=== PATIENT | male | born 1950 | race Caucasian/White ===

== ENCOUNTER 2020-01-20 10:43 | Observation (INO) | payer OTHER ==
[~2020-01-20] VITALS: Ht 182.9 cm; Wt 128.4 kg
[~2020-01-20 10:43] MED LIST: AMBIEN10 MG PO; AMBIENPAK10 M1; ASPIRIN ADULT L81 M4 PO; ASPIRIN ADULT L81 M5; ASPIRIN EC81 M1 PO; ATIVAN1 MG PO; ATIVAN2 MG PO; BACLOFEN10 MG PO; BACO TOP; CELEXA20 MG PO; CEPHALEXIN500 M1 PO; CIPRO500 MG PO; COLACE100 MG; COLACE100 MG PO; DOC-Q-LACE PO; ESCITALOPRAM10 M1 PO; FUROSEMIDE40 MG PO; GLU500 PO; HCTZ/LISINOPRIL1 TA1; HIBICLENS118 ML TOP; HYDROCHLOROTHIA25 MG PO; IBU800 M2; K10 PO; KEN10 TOP; LACTULOSE10 GM/152 PO; LASIX40 MG PO; LEXAPRO10 MG PO; LIO10; LORAZEPAM2 MG PO; LOT1C TOP; OXYCODONE AND A1 TA1 PO; PERCOCET1 TA2 PO; PRINIVIL20 MG PO; RES7; THERAGRAN-M1 TA4 PO; TRAZODONE150 M1 PO; TRE400 PO; WELLBUTRIN SR150 M1; ZES10 PO; ZESTRIL10 MG PO; ZIN PO; ZOC20 PO; ZOCOR20 MG PO
[2020-01-20 10:55] VITALS: Ht 182.9 cm; Wt 128.4 kg
[2020-01-20 12:59] LABS: BILIRUBIN TOTAL 0.25 mg/dL (0.20-1.00); CARBON DIOXIDE 17.8 mmol/L (21-32); CREATININE SERUM 2.2 mg/dL (0.7-1.3); TOTAL PROTEIN, SERUM 7.4 g/dL (6.4-8.2)
[2020-01-20 13:05] LABS: ALBUMIN 3.3 g/dL (3.4-5.0)
[2020-01-20 13:29] LABS: microscopic required? YES; urine erythrocyte TRACE (NEGATIVE)
[2020-01-20 13:48] LABS: BASOPHIL % 0.5 % (0-2); PLATELET COUNT 263 x10^3mcL (130-400); RED CELL DISTRIBUTION WIDTH 14.1 % (11.5-14.5)
[2020-01-20] MEDS ORDERED: RES7 PO (17:12)
[2020-01-20] MEDS ORDERED: LISINOPRIL-HYDR1 TA3 PO (17:13)
[2020-01-20] MEDS ORDERED: NORCO 10-325 T1 EACH PO (17:14)
[2020-01-20] MEDS ORDERED: FOSAMAX PLUS D1 TA1 PO (17:14)
[2020-01-20] MEDS ORDERED: ATIVAN0.5 M1 PO (17:16)
[2020-01-20] MEDS ORDERED: WELLBUTRIN XL150 M1 PO (17:16)
[2020-01-20] MEDS ORDERED: SIMVASTATIN5 M2 PO (17:17)
[2020-01-20 18:31] VITALS: BP 116/59
[2020-01-20 20:47] VITALS: BP 121/53
[2020-01-21 05:29] VITALS: BP 128/59
[2020-01-21 07:58] VITALS: BP 106/44
[2020-01-21 11:52] VITALS: BP 98/51
[2020-01-21 14:05] LABS: POTASSIUM SERUM 5.8 mmol/L (3.5-5.1)
[2020-01-21 14:50] LABS: CALCIUM 8.6 mg/dL (8.5-10.1); CARBON DIOXIDE 23.6 mmol/L (21-32); CREATININE SERUM 1.8 mg/dL (0.7-1.3)
[2020-01-21 15:07] LABS: POTASSIUM SERUM 5.8 mmol/L (3.5-5.1)
[2020-01-21 16:26] VITALS: BP 117/87
[2020-01-21 20:09] VITALS: BP 111/64
[2020-01-22 05:25] VITALS: BP 113/53
[2020-01-22 07:31] LABS: BASOPHIL % 0.7 % (0-2); PLATELET COUNT 266 x10^3mcL (130-400)
[2020-01-22 07:45] LABS: CALCIUM 8.4 mg/dL (8.5-10.1); CARBON DIOXIDE 20.2 mmol/L (21-32); CREATININE SERUM 1.5 mg/dL (0.7-1.3)
[2020-01-22 07:52] VITALS: BP 137/64
[2020-01-22 10:20] LABS: RED CELL DISTRIBUTION WIDTH 14.7 % (11.5-14.5)
[2020-01-22 11:33] VITALS: BP 133/61
[2020-01-22 15:38] VITALS: BP 114/59
[2020-01-22 20:54] VITALS: BP 125/64
[2020-01-23 05:30] VITALS: BP 127/68
[2020-01-23 08:06] VITALS: BP 83/51
[2020-01-23 09:00] VITALS: BP 109/64
[2020-01-23 10:13] LABS: CALCIUM 8.3 mg/dL (8.5-10.1); CARBON DIOXIDE 24.8 mmol/L (21-32); CREATININE SERUM 1.5 mg/dL (0.7-1.3); POTASSIUM SERUM 4.9 mmol/L (3.5-5.1)
[2020-01-23 11:37] VITALS: BP 102/67
== END 2020-01-23 12:25 ==
LOC: ED 10:43 → DU 16:12
PROVIDERS: Emergency Medicine; Internal Medicine; ADMIT Hospitalist; ATTEND Hospitalist
DX: R55 Syncope and collapse (principal); I10 Essential (primary) hypertension; N39.0 Urinary tract infection, site not specified; G89.29 Other chronic pain; M54.9 Dorsalgia, unspecified; M17.0 Bilateral primary osteoarthritis of knee; I12.9 Hypertensive chronic kidney disease with stage 1 through stage 4 chronic kidney disease, or unspecified chronic kidney disease; N18.30 Chronic kidney disease, stage 3 unspecified; E66.01 Morbid (severe) obesity due to excess calories; E78.5 Hyperlipidemia, unspecified
CPT/HCPCS: 97112-GP; 97116-GP; 97530-GP; G0378; J0696; J7030; J7060